=== PATIENT | female | born 1940 | race Caucasian/White ===

== ENCOUNTER → 2017-01-02 | Outpatient (CLI) | payer OTHER ==
[~2017-01-02] MED LIST: ASPI-650 PO; ASPI325T92 PO; HYDR12.53 PO; LATA2.5D3 EACHEYE; OMEP20CA9 PO
== END | disposition home or self-care (01) ==
LOC: CFH 09:48
PROVIDERS: ATTEND Family Medicine
DX: Z12.31 Encounter for screening mammogram for malignant neoplasm of breast (principal)
CPT/HCPCS: G0202

== ENCOUNTER → 2018-01-15 | Outpatient (CLI) | payer OTHER | END | disposition home or self-care (01) | LOC: CFH 10:05 | PROVIDERS: ATTEND Family Medicine | DX: Z12.31 Encounter for screening mammogram for malignant neoplasm of breast (principal); Z88.2 Allergy status to sulfonamides | CPT/HCPCS: 77067 ==

== ENCOUNTER → 2020-06-22 | Outpatient (CLI) | payer MEDICARE ==
[~2020-06-22] MED LIST changes: +HYDR12.517 PO; -HYDR12.53 PO; -LATA2.5D3 EACHEYE; +LATA2.5D4 EACHEYE
== END | disposition home or self-care (01) ==
LOC: CFH 12:32
PROVIDERS: ATTEND Family Medicine
DX: Z12.31 Encounter for screening mammogram for malignant neoplasm of breast (principal)
CPT/HCPCS: 77063; 77067